=== PATIENT | male | born 1965 | race Two or more races ===

== ENCOUNTER 2021-10-18 16:10 | Emergency (ER) | payer MEDICAID, OTHER ==
[~2021-10-18] VITALS: Ht 185.4 cm; Wt 90.7 kg
[2021-10-18 16:15] VITALS: BP 139/86
== END 2021-10-18 16:32 | disposition left against medical advice (07) ==
LOC: ER 16:10
DX: S68.021A Partial traumatic metacarpophalangeal amputation of right thumb, initial encounter (principal); Z53.21 Procedure and treatment not carried out due to patient leaving prior to being seen by health care provider; X58.XXXA Exposure to other specified factors, initial encounter; Y93.9 Activity, unspecified; Y92.9 Unspecified place or not applicable; Y99.9 Unspecified external cause status